=== PATIENT | female | born 1995 | race Caucasian/White ===

== ENCOUNTER 2017-01-08 21:59 | Emergency (ER) | payer OTHER ==
[~2017-01-08] VITALS: Ht 162.6 cm; Wt 83.9 kg
[~2017-01-08 21:59] MED LIST: CALCIUM 600 MG-1 TAB PO; FERROUS SULFAT325 MG PO; PRENATAL VITAMI1 T10 PO
[2017-01-08 22:09] VITALS: BP 97/51
--- NOTE | 2017-01-09 00:01 | NUR ---
AMBULATED TO ER BED 8
--- NOTE | 2017-01-09 00:13 | NUR ---
PT IS A 21/F BIB FAMILY TO ED WITH C/O ABD PAIN, VAGINAL PAIN x 3 DAYS. PT STATES SHE IS 14 WEEKS . DENIES ANY MED HX. DENIES N/V/D; SKIN IS PINK/WARM/DRY; AAOX4 WITH EVEN AND STEADY GAIT; LUNGS CLEAR BL; HR EVEN AND REGULAR; PT DENIES ANY FEVER, CP, SOB, OR COUGH AT THIS TIME; PATIENT STATES PAIN OF 7/10 AT THIS TIME; VSS; PATIENT POSITIONED FOR COMFORT; HOB ELEVATED; BEDRAILS UP X2; BED DOWN. ER MD MADE AWARE OF PT STATUS.
--- NOTE | 2017-01-09 01:30 | NUR ---
Patient being evaluated by at bedside.
--- NOTE | 2017-01-09 01:45 | NUR ---
Patient discharged with v/s stable. Written and verbal after care instructions given and explained. Patient verbalized understanding. Ambulatory with steady gait. All questions addressed prior to discharge. Advised to follow up with PMD.
[2017-01-09 01:48] VITALS: BP 105/55
== END 2017-01-09 01:45 | disposition home or self-care (01) ==
LOC: MED 21:59
DX: Z34.82 Encounter for supervision of other normal pregnancy, second trimester (principal); R10.9 Unspecified abdominal pain; R30.0 Dysuria

== ENCOUNTER 2017-02-26 22:31 | Emergency (ER) | payer OTHER ==
[~2017-02-26] VITALS: Ht 162.6 cm; Wt 84.8 kg
[~2017-02-26 22:31] MED LIST changes: +CALC-1018 PO; -CALCIUM 600 MG-1 TAB PO; +FERR325E14 PO; -FERROUS SULFAT325 MG PO; +PREN-385 PO; -PRENATAL VITAMI1 T10 PO
[2017-02-26 22:32] VITALS: BP 111/53
[2017-02-26] MEDS ORDERED: cefTRIAXone 1,000 MG in LIDOCAINE 1% ED 2.1 ML IM SCH (23:15)
[2017-02-26 23:24] VITALS: BP 107/55
[2017-02-26] MEDS ORDERED: LIDOCAINE 1% 500 MG/50 ML VIAL INJ ONE (23:30)
[2017-02-26] MEDS ORDERED: LIDOCAINE 1% 500 MG/50 ML VIAL INJ SCH (23:35)
[2017-02-26] MEDS ORDERED: cefTRIAXone 1,000 MG VIAL ONE (23:35)
[2017-02-26] MEDS ORDERED: LIDOCAINE 1% 50 ML ONE (23:36)
--- NOTE | 2017-02-27 07:09 | NUR ---
PATIENT HAS BEEN SCREENED AND CATEGORIZED LOW NUTRITION RISK. PATIENT WILL BE SEEN WITHIN 7 DAYS OF ADMISSION. 03/04/17 SATISH HURTADO MS, RDN
[2017-02-27 08:54] LABS: BASOPHILS # (AUTO) 0.1 K/uL (0.00-0.22); BASOPHILS % (AUTO) 0.7 % (0.0-2.0); EOSINOPHILS # (AUTO) 0.3 K/uL (0-0.4); EOSINOPHILS % (AUTO) 2.4 % (0.0-4.0); HEMATOCRIT 38.9 % (36-48); HEMOGLOBIN 13.1 g/dL (12.0-16.0); LYMPHOCYTES # (AUTO) 3.2 K/uL (2.5-16.5); MEAN CORPUSCULAR HEMOGLOBIN 29 pg (27-31); MEAN CORPUSCULAR HGB CONC 34 g/dL (33-37); MEAN CORPUSCULAR VOLUME 87 fL (80-94); MONOCYTES # (AUTO) 0.8 K/uL (0.8-1.0); MONOCYTES % (AUTO) 6.1 % (1.7-9.3); NEUTROPHILS # (AUTO) 8.1 K/uL (1.8-7.7); NEUTROPHILS % (AUTO) 64.8 % (42.2-75.2); PLATELET COUNT (AUTO) 149 K/uL (140-450); RED BLOOD CELL COUNT(AUTO) 4.48 MIL/uL (4.20-5.40); RED CELL DISTRIBUTION WIDTH 13.6 % (11.6-13.7); WHITE BLOOD COUNT (AUTO) 12.5 K/uL (4.5-11.0)
[2017-02-27 12:17] VITALS: BP 113/54
== END 2017-02-27 12:25 | disposition home or self-care (01) ==
LOC: MED 22:31 → MLD 22:45 → MFCC 02-27 04:10
PROVIDERS: ADMIT Obstetrics & Gynecology; ATTEND Obstetrics & Gynecology
DX: O26.892 Other specified pregnancy related conditions, second trimester (principal); R10.9 Unspecified abdominal pain; O45.92 Premature separation of placenta, unspecified, second trimester; Z3A.19 19 weeks gestation of pregnancy; M54.5 Low back pain; W19.XXXA Unspecified fall, initial encounter
CPT/HCPCS: 36415; 76805; 76815; 85025; 86886; 86900; 86901; 99281; G0378; J0696; J2001; Q0092; 81000; 96372

== ENCOUNTER 2017-02-28 22:54 | Inpatient (IN) | payer OTHER ==
[~2017-02-28] VITALS: Ht 162.6 cm; Wt 85.0 kg
[~2017-02-28 22:54] MED LIST changes: -CALC-1018 PO; +CALCIUM 600 MG-1 TAB PO; -FERR325E14 PO; +FERROUS SULFAT325 MG PO; -PREN-385 PO; +PRENATAL VITAMI1 T10 PO
[2017-02-28 22:59] VITALS: BP 110/64
--- NOTE | 2017-03-01 00:21 | NUR ---
Patient ambulated to bed 06.
--- NOTE | 2017-03-01 00:32 | NUR ---
21Y/F PATIENT PRESENTS TO ED WITH C/O VAGINAL PAIN X 2 DAYS . PT STATES CAME TO ED ON STAURDAY, WS DIAGNOSED ABNORMAL PLACENTA, TODAY PAIN INCREASE TO ABDOMEN, BACK AND VAGINA. DENIES N/V/D; SKIN IS PINK/WARM/DRY; AAOX4 WITH EVEN AND STEADY GAIT; LUNGS CLEAR BL; HR EVEN AND REGULAR; PT DENIES ANY FEVER, CP, SOB, OR COUGH AT THIS TIME; PATIENT STATES PAIN OF 7/10 AT THIS TIME; VSS; PATIENT POSITIONED FOR COMFORT; HOB ELEVATED; BEDRAILS UP X2; BED DOWN. ER MD MADE AWARE OF PT STATUS.
--- NOTE | 2017-03-01 01:36 | NUR ---
Dr. Denson evaluating patient at bedside.
--- NOTE | 2017-03-01 01:37 | NUR ---
Patient being evaluated by at bedside.
--- NOTE | 2017-03-01 03:06 | NUR ---
US AT BEDSIDE.
--- NOTE | 2017-03-01 04:23 | NUR ---
CALLED DR PRIYANKA DONNELLY, DR PRIYANKA DONNELLY STATED TO ADMIT PATIENT TO OB. LET OB AND ER KNOW
--- NOTE | 2017-03-01 04:45 | NUR ---
Patient will be admitted to care of DR.T.T. DONNELLY. Admited to OB. Will go to room 2. Belongings list completed. Report to RAYMOND PARRA.
[2017-03-01] MEDS ORDERED: LACTATED RINGERS 1,000 ML IV SCH (05:25)
[2017-03-01] MEDS ORDERED: ACETAMINOPHEN 325 MG TAB PO PRN (05:25)
[2017-03-01 05:36] VITALS: BP 104/55
[2017-03-01] MEDS ORDERED: ACETAMINOPHEN 325 MG TAB ONE (05:43)
[2017-03-01 08:10] VITALS: BP 90/54
--- NOTE | 2017-03-01 08:38 | NUR ---
PATIENT HAS BEEN SCREENED AND CATEGORIZED LOW NUTRITION RISK. PATIENT WILL BE SEEN WITHIN 7 DAYS OF ADMISSION. 03/07/[address]
== END 2017-03-01 08:55 | disposition home or self-care (01) | DRG 566 ==
LOC: MED 22:54 → MLD 03-01 04:34
PROVIDERS: ADMIT Obstetrics & Gynecology; ATTEND Obstetrics & Gynecology
DX: O45.92 Premature separation of placenta, unspecified, second trimester (principal); Z3A.20 20 weeks gestation of pregnancy

== ENCOUNTER 2017-06-03 16:55 | Observation (INO) | payer OTHER ==
[~2017-06-03] VITALS: Ht 167.6 cm; Wt 84.8 kg
[~2017-06-03 16:55] MED LIST changes: +CALC-1018 PO; -CALCIUM 600 MG-1 TAB PO; +FERR325E14 PO; -FERROUS SULFAT325 MG PO; +PREN-385 PO; -PRENATAL VITAMI1 T10 PO
[2017-06-03 17:29] VITALS: BP 109/56
[2017-06-03 17:49] LABS: APPEARANCE,URINE CLOUDY (CLEAR); BILIRUBIN,URINE NEGATIVE (NEGATIVE); BLOOD, URINE 3+ (NEGATIVE); LEUKOCYTE ESTERASE ,URINE TRACE (NEGATIVE); NITRITE, URINE NEGATIVE (NEGATIVE); PROTEIN,URINE 2+ (NEGATIVE); UGLUCOSE NEGATIVE (NEGATIVE)
[2017-06-03 17:50] LABS: COLOR,URINE BLOODY (YELLOW)
[2017-06-03 17:51] LABS: BACTERIA,URINE 1+ /HPF (None Seen); RBC,URINE TOO NUMEROUS TO COUN /HPF (0-5)
[2017-06-03] MEDS ORDERED: cefTRIAXone 1,000 MG in LIDOCAINE 1% ED 2.1 ML IM SCH (18:30)
[2017-06-03] MEDS ORDERED: MORPHINE SULFATE 4 MG/ML SYR IVP PRN (19:35)
[2017-06-03] MEDS ORDERED: LACTATED RINGERS 1,000 ML IV SCH (19:35)
[2017-06-03] MEDS ORDERED: MORPHINE SULFATE 4 MG/ML SYR IM PRN (19:40)
[2017-06-03] MEDS ORDERED: MORPHINE SULFATE 4 MG/ML SYR IM/IVP PRN (19:45)
[2017-06-03] MEDS: LACTATED RINGERS 1,000 ML IV SCH ×2 (19:56→20:01)
[2017-06-03] MEDS ORDERED: MORPHINE SULFATE 10 MG/ML SYR ONE (20:05)
== END 2017-06-03 22:10 | disposition home or self-care (01) ==
LOC: MLD 16:55
PROVIDERS: ADMIT Obstetrics & Gynecology; ATTEND Obstetrics & Gynecology
DX: O26.893 Other specified pregnancy related conditions, third trimester (principal); M54.9 Dorsalgia, unspecified; Z3A.32 32 weeks gestation of pregnancy
CPT/HCPCS: 76819; 81001; 96361; 96372; 96374; G0378; J0696; J2001; J2270; J7120; Q0092

== ENCOUNTER 2017-07-02 17:14 | Observation (INO) | payer OTHER ==
[~2017-07-02] VITALS: Ht 177.8 cm; Wt 89.8 kg
[2017-07-02 17:44] VITALS: BP 115/68
[2017-07-02] MEDS ORDERED: PROMETHAZINE 25 MG/ML VIAL IM PRN (18:10)
[2017-07-02] MEDS ORDERED: NALBUPHINE 10 MG/ML AMP IVP PRN (18:10)
[2017-07-02] MEDS ORDERED: NALBUPHINE HYDROCHLORIDE 10 MG/ML VIAL ONE (20:13)
[2017-07-02] MEDS ORDERED: PROMETHAZINE 25 MG/ML VIAL ONE (20:13)
[2017-07-02 20:16] LABS: APPEARANCE,URINE SL CLOUDY (CLEAR); BLOOD, URINE 3+ (NEGATIVE); COLOR,URINE YELLOW (YELLOW); LEUKOCYTE ESTERASE ,URINE TRACE (NEGATIVE); NITRITE, URINE NEGATIVE (NEGATIVE); UGLUCOSE NEGATIVE (NEGATIVE)
[2017-07-02] MEDS: LACTATED RINGERS 1,000 ML IV SCH (20:24)
[2017-07-02 20:26] LABS: BILIRUBIN,URINE NEGATIVE (NEGATIVE); RBC,URINE TOO NUMEROUS TO COUN /HPF (0-5); WBC,URINE 0-5 /HPF (0-5)
[2017-07-03] MEDS ORDERED: PROMETHAZINE 25 MG/ML VIAL ONE (02:17)
[2017-07-03] MEDS ORDERED: NALBUPHINE HYDROCHLORIDE 10 MG/ML VIAL ONE (02:17)
[2017-07-03] MEDS: LACTATED RINGERS 1,000 ML IV SCH (04:01)
[2017-07-03] MEDS ORDERED: IBUPROFEN 800 MG TAB PO PRN (10:45)
== END 2017-07-03 13:22 | disposition home or self-care (01) ==
LOC: MFCC 17:14
PROVIDERS: ADMIT Obstetrics & Gynecology; ATTEND Obstetrics & Gynecology
DX: O26.893 Other specified pregnancy related conditions, third trimester (principal); R10.9 Unspecified abdominal pain; M54.9 Dorsalgia, unspecified; Z3A.37 37 weeks gestation of pregnancy
CPT/HCPCS: 76770; 76805; 81001; 87653; 96361; 96372; 96374; 96376; G0378; J2300; J2550; J7120; Q0092

== ENCOUNTER 2017-07-08 07:56 | Observation (INO) | payer OTHER ==
[~2017-07-08] VITALS: Ht 162.6 cm; Wt 86.2 kg
[2017-07-08] MEDS ORDERED: TERBUTALINE 1 MG/ML VIAL SUBQ ONE (08:21)
[2017-07-08] MEDS ORDERED: PREN-546 PO (08:25)
[2017-07-08 11:00] VITALS: BP 122/59
[2017-07-08] MEDS ORDERED: LACTATED RINGERS 1,000 ML IV SCH (14:30)
--- NOTE | 2017-07-09 11:20 | NUR ---
PATIENT HAS BEEN SCREENED AND CATEGORIZED LOW NUTRITION RISK. PATIENT WILL BE SEEN WITHIN 7 DAYS OF ADMISSION. 07/14/[address]
== END 2017-07-09 10:15 | disposition home or self-care (01) ==
LOC: MLD 07:56
PROVIDERS: ADMIT Obstetrics & Gynecology; ATTEND Obstetrics & Gynecology
DX: O41.8X30 Other specified disorders of amniotic fluid and membranes, third trimester, not applicable or unspecified (principal); O26.893 Other specified pregnancy related conditions, third trimester; R10.9 Unspecified abdominal pain; Z3A.00 Weeks of gestation of pregnancy not specified
CPT/HCPCS: 76815; 76819; 96360; 96361; G0378; J3105; J7120; Q0092

== ENCOUNTER 2017-07-12 08:09 | Observation (INO) | payer OTHER ==
[~2017-07-12] VITALS: Ht 162.6 cm; Wt 91.6 kg
[~2017-07-12 08:09] MED LIST changes: -CALC-1018 PO; -FERR325E14 PO; -PREN-385 PO; +PREN-546 PO
--- NOTE | 2017-07-12 09:04 | NUR ---
PATIENT HAS BEEN SCREENED AND CATEGORIZED LOW NUTRITION RISK. PATIENT WILL BE SEEN WITHIN 7 DAYS OF ADMISSION. 07/18/[address]
[2017-07-12 09:07] VITALS: BP 99/56
== END 2017-07-12 11:40 | disposition home or self-care (01) ==
LOC: MLD 08:09
PROVIDERS: ADMIT Obstetrics & Gynecology; ATTEND Obstetrics & Gynecology
DX: O41.93X0 Disorder of amniotic fluid and membranes, unspecified, third trimester, not applicable or unspecified (principal); Z3A.38 38 weeks gestation of pregnancy
CPT/HCPCS: 59025; 76819; G0378; Q0092

== ENCOUNTER 2017-07-15 14:21 | Observation (INO) | payer OTHER ==
[~2017-07-15] VITALS: Ht 177.8 cm; Wt 91.6 kg
[2017-07-15 14:47] VITALS: BP 110/64
[2017-07-15] MEDS ORDERED: cefTRIAXone 1,000 MG in LIDOCAINE 1% ED 2.1 ML IM SCH (15:30)
== END 2017-07-15 16:03 | disposition home or self-care (01) ==
LOC: MLD 14:21
PROVIDERS: ADMIT Obstetrics & Gynecology; ATTEND Obstetrics & Gynecology
DX: O26.893 Other specified pregnancy related conditions, third trimester (principal); M54.9 Dorsalgia, unspecified; Z3A.38 38 weeks gestation of pregnancy
CPT/HCPCS: G0378; J0696; J2001

== ENCOUNTER 2017-07-16 02:30 | Inpatient (IN) | payer OTHER ==
[~2017-07-16] VITALS: Ht 162.6 cm; Wt 84.4 kg
[2017-07-16 02:42] VITALS: BP 128/78
[2017-07-16] MEDS ORDERED: LACTATED RINGERS 1,000 ML IV SCH (02:49)
[2017-07-16] MEDS ORDERED: OXYTOCIN 20 UNITS/LR PREMIX 1,000 ML IV SCH (02:50)
[2017-07-16] MEDS ORDERED: PROMETHAZINE 25 MG/ML VIAL IVP PRN (02:50)
[2017-07-16] MEDS ORDERED: OXYTOCIN 10 UNITS/ML VIAL IM ONE (02:50)
[2017-07-16] MEDS ORDERED: NALBUPHINE HYDROCHLORIDE 10 MG/ML VIAL IVP PRN (02:50)
[2017-07-16] MEDS ORDERED: AMPICILLIN 2,000 MG in NACL 0.9% MINI-BAG PLUS 100 ML IV SCH (02:50)
[2017-07-16 03:31] LABS: EOSINOPHILS # (AUTO) 0.2 K/uL (0-0.4); MONOCYTES # (AUTO) 0.8 K/uL (0.8-1.0); MONOCYTES % (AUTO) 7.3 % (1.7-9.3)
[2017-07-16] MEDS ORDERED: NALBUPHINE HYDROCHLORIDE 10 MG/ML VIAL ONE (03:33)
[2017-07-16] MEDS ORDERED: AMPICILLIN 2,000 MG VIAL ONE (03:33)
[2017-07-16] MEDS ORDERED: PROMETHAZINE 25 MG/ML VIAL ONE (03:34)
[2017-07-16 03:38] LABS: BASOPHILS % (AUTO) 0.4 % (0.0-2.0); EOSINOPHILS % (AUTO) 1.6 % (0.0-4.0); HEMATOCRIT 34.4 % (36-48); HEMOGLOBIN 11.4 g/dL (12.0-16.0); LYMPHOCYTES % (AUTO) 28.1 % (20.5-51.1); MEAN CORPUSCULAR HEMOGLOBIN 26 pg (27-31); MEAN CORPUSCULAR HGB CONC 33 g/dL (33-37); MEAN CORPUSCULAR VOLUME 79 fL (80-94); NEUTROPHILS # (AUTO) 6.5 K/uL (1.8-7.7); NEUTROPHILS % (AUTO) 62.6 % (42.2-75.2); RED BLOOD CELL COUNT(AUTO) 4.35 MIL/uL (4.20-5.40); RED CELL DISTRIBUTION WIDTH 14.7 % (11.6-13.7); WHITE BLOOD COUNT (AUTO) 10.5 K/uL (4.5-11.0)
[2017-07-16 03:47] LABS: ALBUMIN 2.6 g/dL (3.4-5.0); ANION GAP 10.5 (8-16); CARBON DIOXIDE 25.3 mmol/L (21-32); CREATININE 0.6 mg/dL (0.6-1.3); POTASSIUM 3.8 mmol/L (3.5-5.1); TOTAL BILIRUBIN 0.3 mg/dL (0.0-1.0)
[2017-07-16] MEDS ORDERED: LIDOCAINE 1% 500 MG/50 ML VIAL INJ SCH (03:50)
[2017-07-16 04:05] LABS: APPEARANCE,URINE SL CLOUDY (CLEAR); BILIRUBIN,URINE NEGATIVE (NEGATIVE); BLOOD, URINE 3+ (NEGATIVE); COLOR,URINE YELLOW (YELLOW); LEUKOCYTE ESTERASE ,URINE NEGATIVE (NEGATIVE); NITRITE, URINE NEGATIVE (NEGATIVE); UGLUCOSE NEGATIVE (NEGATIVE)
[2017-07-16] MEDS ORDERED: OXYTOCIN 20 UNITS/LR PREMIX 1,000 ML IV ONE (04:29)
[2017-07-16] MEDS ORDERED: LIDOCAINE 1% 0 ML ONE (04:30)
[2017-07-16] MEDS ORDERED: OXYTOCIN 10 UNITS/ML VIAL ONE (04:30)
[2017-07-16 04:41] LABS: PLATELET COUNT (AUTO) 104 K/uL (140-450)
[2017-07-16 04:41] LABS: RBC,URINE TOO NUMEROUS TO COUN /HPF (0-5); WBC,URINE 0-5 (RARE) /HPF (0-5)
[2017-07-16] MEDS ORDERED: NALOXONE 0.4 MG/ML VIAL ONE (04:54)
[2017-07-16] MEDS ORDERED: OXYTOCIN 10 UNITS/ML VIAL IM PRN (05:25)
[2017-07-16] MEDS ORDERED: oxyCODONE/APAP 5/325 MG 1 TAB TAB PO PRN (05:25)
[2017-07-16] MEDS ORDERED: MEASLES, MUMPS, AND RUBELLA 1 VIAL SQVAC PRN (05:25)
[2017-07-16] MEDS ORDERED: METHYLERGONOVINE 0.2 MG/ML AMP IM PRN (05:25)
[2017-07-16] MEDS ORDERED: TEMAZEPAM 15 MG CAP PO PRN (05:25)
--- NOTE | 2017-07-16 07:18 | NUR ---
PATIENT HAS BEEN SCREENED AND CATEGORIZED LOW NUTRITION RISK. PATIENT WILL BE SEEN WITHIN 7 DAYS OF ADMISSION. 07/22/[address]
[2017-07-16] MEDS ORDERED: AMPICILLIN 1,000 MG in NACL 0.9% MINI-BAG PLUS 50 ML IV SCH (08:00)
[2017-07-16] MEDS: IBUPROFEN 800 MG TAB PO PRN ×2 (09:13→17:34)
[2017-07-16] MEDS: HYDROcodone/APAP 5/325 MG 1 TAB TAB PO PRN (19:59)
[2017-07-16] MEDS ORDERED: DOCUSATE SOD/SENNA 50/8.6 MG 1 TAB PO SCH (21:00)
[2017-07-17] MEDS: HYDROcodone/APAP 5/325 MG 1 TAB TAB PO PRN (06:57)
[2017-07-17 07:25] LABS: HEMATOCRIT 36.6 % (36-48); HEMOGLOBIN 11.7 g/dL (12.0-16.0)
[2017-07-17] MEDS ORDERED: DOCUSATE SOD/SENNA 50/8.6 MG 1 TAB PO SCH (21:00)
[2017-07-18] MEDS: IBUPROFEN 800 MG TAB PO PRN (08:38)
[2017-07-18] MEDS ORDERED: IBUP-2213 PO (11:08)
== END 2017-07-18 13:10 | disposition home or self-care (01) | DRG 560 ==
LOC: MLD 02:30 → MFCC 08:20
PROVIDERS: ADMIT Obstetrics & Gynecology; ATTEND Obstetrics & Gynecology
PROC: 10E0XZZ Delivery of Products of Conception, External Approach (ICD-10-PCS; principal; 2017-07-16)
PROC: 3E0234Z Introduction of Serum, Toxoid and Vaccine into Muscle, Percutaneous Approach (ICD-10-PCS; 2017-07-17)
DX: O69.1XX0 Labor and delivery complicated by cord around neck, with compression, not applicable or unspecified (principal); O62.3 Precipitate labor; Z37.0 Single live birth; Z3A.39 39 weeks gestation of pregnancy; Z23 Encounter for immunization
CPT/HCPCS: 36415; 59409; 80053; 81001; 85018; 85025; 86592; 86886; 86900; 86901; 90715; J0290; J2001; J2300; J2310; J2550; J2590; J7120

== ENCOUNTER 2019-03-07 16:43 | Emergency (ER) | payer OTHER ==
[~2019-03-07] VITALS: Ht 165.1 cm; Wt 87.1 kg
[~2019-03-07 16:43] MED LIST changes: +IBUP-2213 PO; -PREN-546 PO
[2019-03-07 16:56] VITALS: BP 102/52
--- NOTE | 2019-03-07 17:00 | NUR ---
URINE CUP HANDED TO PT FOR SAMPLE---PT TO WAIT ER LOBBY FOR AVAILABLE ROOM FOR MD GONZALES
--- NOTE | 2019-03-07 18:21 | NUR ---
lab notified of urine hcg requested
[2019-03-07 18:36] LABS: BILIRUBIN,URINE NEGATIVE (NEGATIVE); BLOOD, URINE 1+ (NEGATIVE); COLOR,URINE YELLOW (YELLOW); LEUKOCYTE ESTERASE ,URINE TRACE (NEGATIVE); NITRITE, URINE NEGATIVE (NEGATIVE); UGLUCOSE NEGATIVE (NEGATIVE)
[2019-03-07 18:37] LABS: APPEARANCE,URINE HAZY (CLEAR)
[2019-03-07 18:53] LABS: RBC,URINE 11-20 (MOD) /HPF (0-5)
--- NOTE | 2019-03-07 19:02 | NUR ---
C/O INTERMITTENT SHARP LOWER ABDOMEN PAIN AND LOWER BACK PAIN 7/10 S/P ROLLED OFF BED TODAY---- DENIES VAGINAL BLEEDING 13WKS IUP HX--DENIES RX--- VITAMINS, ZOFRAN. PATIENT POSITIONED FOR COMFORT; HOB ELEVATED; BEDRAILS UP X2; BED DOWN. ER MD MADE AWARE OF PT STATUS.
--- NOTE | 2019-03-07 19:10 | NUR ---
Pt report given to ELZA ANDRADE. Transfer of care at this time.
--- NOTE | 2019-03-07 19:11 | NUR ---
RECEIVED REPORT FROM RAYMOND JAIMES.
[2019-03-07 19:36] LABS: BASOPHILS % (AUTO) 0.4 % (0.0-2.0); EOSINOPHILS # (AUTO) 0.1 K/uL (0-0.4); EOSINOPHILS % (AUTO) 0.6 % (0.0-4.0); HEMATOCRIT 40.6 % (36-48); HEMOGLOBIN 13.7 g/dL (12.0-16.0); LYMPHOCYTES # (AUTO) 1.9 K/uL (2.5-16.5); LYMPHOCYTES % (AUTO) 16.2 % (20.5-51.1); MEAN CORPUSCULAR HEMOGLOBIN 27 pg (27-31); MEAN CORPUSCULAR HGB CONC 34 g/dL (33-37); MONOCYTES # (AUTO) 0.4 K/uL (0.8-1.0); MONOCYTES % (AUTO) 3.6 % (1.7-9.3); NEUTROPHILS # (AUTO) 9.2 K/uL (1.8-7.7); NEUTROPHILS % (AUTO) 79.2 % (42.2-75.2); PLATELET COUNT (AUTO) 198 K/uL (140-450); RED BLOOD CELL COUNT(AUTO) 5.01 MIL/uL (4.20-5.40); RED CELL DISTRIBUTION WIDTH 16.9 % (11.6-13.7); WHITE BLOOD COUNT (AUTO) 11.6 K/uL (4.8-10.8)
--- NOTE | 2019-03-07 20:23 | NUR ---
US AT [facility].
[2019-03-07 21:05] LABS: ANION GAP 14.3 (8-16); CARBON DIOXIDE 23.5 mmol/L (21-32); CREATININE 0.5 mg/dL (0.6-1.3); POTASSIUM 3.8 mmol/L (3.5-5.1)
[2019-03-07 22:15] VITALS: BP 103/56
== END 2019-03-07 22:15 | disposition home or self-care (01) ==
LOC: MED 16:43
DX: O26.891 Other specified pregnancy related conditions, first trimester (principal); R10.9 Unspecified abdominal pain; M54.5 Low back pain; N89.8 Other specified noninflammatory disorders of vagina; Z79.1 Long term (current) use of non-steroidal anti-inflammatories (NSAID); Z3A.13 13 weeks gestation of pregnancy
CPT/HCPCS: 36415; 76815; 80048; 81001; 81025; 84702; 85025; 86900; 86901; 87086; 99284; Q0092